=== PATIENT | male | born 2005 | race Caucasian/White ===

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

== ENCOUNTER 2024-08-26 21:13 | Emergency (ER) | payer BC, SELFPAY ==
[2024-08-26 21:14] VITALS: BP 145/84; PULSE 99; RESP 19; TEMP 37.1; O2SAT 99
--- OUTSIDE RECORDS SUMMARY | 2024-08-26 21:15 | XMS_ITS | Clinical Summary ---
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 Gender Identity Not on file Sexual Orientation Not on file Plan of Treatment Health Maintenance Due Date Last Done Comments Annual Physical 10/15/2006 HPV Vaccines (1 - Male 3-dos e series) 10/15/2018 Meningococcal B Vaccine (1 o f 2 - Standard) 2019 Hepatitis C 10/15/2021 DTaP, Tdap and Td Vaccines ( 1 - Tdap) 10/15/2022 Hepatitis B Vaccines (1 of 3 - 19+ 3-dose series) 10/15/2022 COVID-19 Vaccine (1 - 2023-2 5 season) 2024 Meningococcal Vaccine Aged Out No sharon oswaldo eligible based on patient's age to complete this topic Pneumococcal Vaccine: Pediat rics (0 to 5 Years) and At-Risk Patients (6 to 49 Years) Aged Out No longer eligible b ased on patient's age to complete this topic RSV Immunizations Under 20 Months Aged Out No longer eligible based on patient's age to complete this topic
--- OUTSIDE RECORDS SUMMARY | 2024-08-26 21:15 | XMS_ITS | Encounter Summary ---
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
--- OUTSIDE RECORDS SUMMARY | 2024-08-26 21:15 | XMS_ITS | Encounter Summary ---
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
--- NOTE | 2024-08-26 21:22 | ED_ITS ---
HPI - General Adult General Chief complaint: Dental/Oral Stated complaint: tooth ache Time Seen by Provider: 08/26/24 21:17 History of Present Illness HPI narrative: Gato is a previously healthy 18M that presented to the ED with worsening pain in his right lower jaw for 5 days. No dyspnea, dysphagia or fevers. 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 Gender identity (if verbalized by the patient): Male Exam Const: General: cooperative, healthy appearing, comfortable, no acute distress, well developed, alert, awake and Physically active Orientation/consciousness: oriented to person, oriented to place and oriented to time HENMT: Head: normal to inspection, normocephalic and atraumatic Ears: hearing grossly normal bilaterally and external ears normal Face/Nose/Sinus: Normal external nose present Other: Right lower molars were broken with erythematous base and very TTP Eyes: General: appearance normal, both eyes and all related structures Periorbital: periorbital findings normal Sclera: sclerae normal Pupils: Equal, round and reactive pupils present Neck: Neck: normal visual inspection Chest: Chest palpation & inspection: normal inspection of the chest Resp: Effort & Inspection: normal respiratory effort, able to speak in comp lete sentences and no respiratory distress Skin: General skin exam: normal color and no rashes or lesions noted Neuro: General: oriented to person, oriented to place and oriented to time Cranial nerves: Yes Equal, round and reactive pupils present Extrem: General: normal to inspection Course Vital Signs Vital signs: Vital Signs Temperature 98.7 F 08/26/24 21:14 Pulse Rate 99 08/26/24 21:14 Respiratory Rate 19 08/26/24 21:14 Blood Pressure 145/84 H 08/26/24 21:14 Pulse Oximetry 99 08/26/24 21:14 Oxygen Delivery Room Air 08/26/24 21:14 Temperature 98.7 F 08/26/24 21:14 Pulse Rate 99 08/26/24 21:14 Respiratory Rate 08/26/24 21:14 Blood Pressure 145/84 H 08/26/24 21:14 Pulse Oximetry 99 08/26/24 21:14 Oxygen Delivery Room Air 08/26/24 21:14 Medical Decision Making Vital Signs Vital Signs: Vital Signs Temperature 98.7 F 08/26/24 21:14 Pulse Rate 99 08/26/24 21:14 Respiratory Rate 08/26/24 21:14 Blood Pressure 145/84 H 08/26/24 21:14 Pulse Oximetry 99 08/26/24 21:14 Oxygen Delivery Room Air 08/26/24 21:14 Temperature 98.7 F 08/26/24 21:14 Pulse Rate 99 08/26/24 21:14 Respiratory Rate 08/26/24 21:14 Blood Pressure 145/84 H 08/26/24 21:14 Pulse Oximetry 99 08/26/24 21:14 Oxygen Delivery Room Air 08/26/24 21:14 Discharge Plan Discharge Clinical Impression: Infected dental caries Patient Disposition: Home Condition: Stable Instructions: Toothache (ED) Patient Language: Amharic Prescriptions: New hydrocodone-acetaminophen 5-325 mg tablet 1 tablet PO Q6-8H PRN (Reason: pain) Qty: 10 0RF amoxicillin-pot clavulanate 875-125 mg tablet 1 tablet PO Q12H Qty: 10 0RF No Action amoxicillin 500 mg tablet 500 mg PO Q8H Qty: 30 0RF Follow-up/Referrals: Campbell Long MD [Primary Care Provider] - Stand Alone Forms: Work/School Release IP
[2024-08-26] MEDS: HYDROcodone/acetaminophen (*CRX) 5-325 MG TABLET 1 TAB PO (21:35)
[2024-08-26] MEDS: AMOXICILLIN/CLAVULANATE K 875-125 MG TAB 1 TABLET PO (21:36)
[2024-08-26] MEDS: KETOROLAC 30 MG/ML VIAL (*BKC) IM (21:36)
== END 2024-08-26 21:56 | disposition home or self-care (01) ==
PROVIDERS: Emergency Provider Family Medicine; PCP Internal Medicine
DX: K02.9 Dental caries, unspecified (principal); K04.7 Periapical abscess without sinus
CPT/HCPCS: 96372; 99283; A9270; J1885